=== PATIENT | female | born 1960 | race African-American/Black ===

== ENCOUNTER 2022-03-02 08:36 | Outpatient (CLI) | payer OTHER ==
[~2022-03-02] VITALS: Ht 160 cm; Wt 58.6 kg
[2022-03-02] MEDS ORDERED: MICARDIS80 MG PO (08:59)
[2022-03-02] MEDS ORDERED: NORVASC 10MG10 MG PO (09:00)
[2022-03-02] MEDS ORDERED: RANEXA 500MG T500 MG PO ×2 (09:02→09:03)
[2022-03-02] MEDS ORDERED: MELATONIN5 M1 SL (09:03)
[2022-03-02 09:07] VITALS: BP 94/69; PULSE 50; TEMP 98.8
[2022-03-02] MEDS ORDERED: CEPHALEXIN500 M1 PO (12:33)
--- NOTE | 2022-03-02 13:45 | NUR ---
Patient verbaiized understanding of discharge instructions, Stated she had no questions. 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 Patient left unit ambulatory, escorted by staff to elevators.
== END 2022-03-02 13:47 | disposition home or self-care (01) ==
LOC: COL.CAR 08:36
DX: R00.1 Bradycardia, unspecified (principal)
CPT/HCPCS: 27936; C1764